=== PATIENT | male | born 1950 | race Caucasian/White ===

== ENCOUNTER 2023-10-24 02:28 | Inpatient (IN) ==
[2023-10-24 02:55] LABS: Hematocrit 30.4 % (38-53); Hemoglobin 9.8 g/dL (13.2-16.3); Mean Corpuscular Hemoglobin 24.3 pg (27-33); Mean Corpuscular Hgb Conc 32.3 g/dL (31-36); Mean Corpuscular Volume 75.2 fL (80-97); Mean Platelet Volume 6.9 fL (7.5-11.2); Platelet Count 237 10^3/uL (150-450); Red Blood Count 4.05 10^6/uL (4.06-5.63); Red Cell Distribution Width 17.7 % (12-17); White Blood Count 14.1 10^3/uL (3.6-10.2)
[2023-10-24 03:03] LABS: Activated Partial Thrombo Time 30.5 seconds (26.0-38.0); INR 1.22 (0.83-1.13)
[2023-10-24 03:27] LABS: ABS Lymphocytes 0.5 10^3/uL (1.0-4.8); ABS Monocytes 0.8 10^3/uL (0.0-1.1); ABS Neutrophils 12.9 10^3/uL (1.5-7.6); Anisocytosis 1+; Eosinophil % 0.1 %; Lymphocyte % 3.4 %
[2023-10-24] MEDS: Lactated Ringers 1000 ml BAG 1,000 ML IV ONE ×2 (03:32→09:35)
[2023-10-24] MEDS: Cefepime 1 GM in Dextrose 1 GM/50 ML BAG IV ONE (03:34)
[2023-10-24] MEDS: Vancomycin 1,000 MG in NS 0.9% 250 ml 250 ML IVPB ONE (03:41)
[2023-10-24 03:42] LABS: Albumin 3.5 g/dL (3.2-5.2); Albumin/Globulin Ratio 1.3 (1-3); C Reactive Protein 143.77 mg/L (<8.01); Calcium 8.3 mg/dL (8.6-10.3); Creatinine, Serum 1.07 mg/dL (0.67-1.17); Globulin 2.6 g/dL (2-4); Potassium 3.1 mmol/L (3.5-5.0); Total Bilirubin 1.4 mg/dL (0.2-1.0); Total Protein 6.1 g/dL (6.4-8.9); eGFR CKD-EPI 72.8 (>60)
[2023-10-24] MEDS: Iodixanol (CONTRAST) 320 MG/ML 100 ML SDV IV ONE (04:21)
[2023-10-24 05:16] LABS: High Sensitivity Troponin 1 Hr 26 pg/mL (<20)
[2023-10-24] MEDS: KCL 20 MEQ/100 ML IVPREMIX 20 MEQ/100 ML BAG IV ONE (05:34)
[2023-10-24] MEDS ORDERED: Dextrose 50% Syringe 50 ml 25 GM/50 ML SYRINGE IV PUSH PRN (05:46)
[2023-10-24 05:49] LABS: Magnesium 1.1 mg/dL (1.9-2.7)
[2023-10-24] MEDS: Magnesium Sulfate 2 gm BAG 2 GM/50 ML BAG IVPB ONE (06:36)
[2023-10-24] MEDS: Lactated Ringers 1000 ml BAG 1,000 ML IV SCH (06:36)
[2023-10-24] MEDS: Acetaminophen IV 1 GM/100ML 1,000 MG/100 ML BAG IV PRN (06:47)
[2023-10-24] MEDS ORDERED: Vancomycin per Pharmacy 1 EA NOTE FOLLOW UP SCH (07:00)
[2023-10-24] MEDS: Cefepime 1 GM in Dextrose 1 GM/50 ML BAG IV SCH (08:13)
[2023-10-24] MEDS: Magnesium Sulfate IV 1GM/100ML 1 GM/100 ML BAG IV ONE ×2 (08:15→22:23)
[2023-10-24 08:46] LABS: ABS Lymphocytes 0.5 10^3/uL (1.0-4.8); ABS Monocytes 0.5 10^3/uL (0.0-1.1); ABS Neutrophils 12.4 10^3/uL (1.5-7.6); Hematocrit 27.2 % (38-53); Hemoglobin 8.9 g/dL (13.2-16.3); Lymphocyte % 3.8 %; Mean Corpuscular Hemoglobin 24.7 pg (27-33); Mean Corpuscular Hgb Conc 32.7 g/dL (31-36); Mean Corpuscular Volume 75.5 fL (80-97); Mean Platelet Volume 7.5 fL (7.5-11.2); Platelet Count 224 10^3/uL (150-450); Red Blood Count 3.61 10^6/uL (4.06-5.63); Red Cell Distribution Width 17.6 % (12-17); White Blood Count 13.5 10^3/uL (3.6-10.2)
[2023-10-24] MEDS ORDERED: Valsartan/HCTZ 320/25(NF) TAB PO SCH (09:00)
[2023-10-24 09:03] LABS: Albumin 3.2 g/dL (3.2-5.2); Albumin/Globulin Ratio 1.3 (1-3); Calcium 7.9 mg/dL (8.6-10.3); Creatinine, Serum 1.18 mg/dL (0.67-1.17); Globulin 2.4 g/dL (2-4); Potassium 3.5 mmol/L (3.5-5.0); Total Bilirubin 1.3 mg/dL (0.2-1.0); Total Protein 5.6 g/dL (6.4-8.9); eGFR CKD-EPI 64.8 (>60)
[2023-10-24 11:39] LABS: Urine Appearance Turbid; Urine Bilirubin Negative (Negative); Urine Blood 3+ (Negative); Urine Color Yellow; Urine Glucose Negative (Negative); Urine Ketones Negative (Negative); Urine Nitrite Negative (Negative); Urine Protein 1+ (>=30 mg/dL) (Negative); Urine Specific Gravity 1.035 (1.002-1.030); Urine Urobilinogen Negative (Negative); Urine pH 5.5 (5.0-8.0)
[2023-10-24 11:52] LABS: Urine Bacteria 1+ /HPF (Absent); Urine Red Blood Cell 3+(>10/hpf) /HPF (0-Trace); Urine Squamous Epithelial Cell Present /HPF (Absent); Urine White Blood Cell 3+(>20/hpf) /HPF (0-Trace)
[2023-10-24] MEDS: Vancomycin Trough Check NOTE FOLLOW UP ONE (12:13)
[2023-10-24] MEDS: Vancomycin 1000 MG in NS 0.9% 250 ML IVPB SCH ×2 (12:36→12:41)
[2023-10-24] MEDS: Heparin 5000 UNITS/ML 1 mL VIAL SUBCUT SCH (22:05)
[2023-10-25 06:31] LABS: ABS Basophils 0.1 10^3/uL (0.0-0.1); ABS Eosinophils 0.1 10^3/uL (0.0-0.5); ABS Lymphocytes 1.5 10^3/uL (1.0-4.8); ABS Monocytes 0.9 10^3/uL (0.0-1.1); ABS Nucleated RBC 0.01 10^3/ul; Eosinophil % 0.5 %; Hematocrit 31.5 % (38-53); Lymphocyte % 9.7 %; Mean Corpuscular Hemoglobin 24.6 pg (27-33); Mean Corpuscular Hgb Conc 31.7 g/dL (31-36); Mean Corpuscular Volume 77.5 fL (80-97); Mean Platelet Volume 7.7 fL (7.5-11.2); Platelet Count 204 10^3/uL (150-450); Red Blood Count 4.07 10^6/uL (4.06-5.63); Red Cell Distribution Width 17.9 % (12-17); White Blood Count 15.5 10^3/uL (3.6-10.2)
[2023-10-25 06:45] LABS: Ferritin 117.4 ng/mL (24-336)
[2023-10-25 07:09] LABS: Anion Gap 15 mmol/L (2-16); Blood Urea Nitrogen 18 mg/dL (6-24); CO2 Carbon Dioxide 23 mmol/L (22-32); Calcium 8.5 mg/dL (8.6-10.3); Chloride 94 mmol/L (101-111); Creatinine, Serum 1.13 mg/dL (0.67-1.17); Glucose 76 mg/dL (70-100); Iron < 20 ug/dL (50-212); Magnesium 2.1 mg/dL (1.9-2.7); Potassium 3.6 mmol/L (3.5-5.0); Sodium 132 mmol/L (135-145); eGFR CKD-EPI 68.2 (>60)
[2023-10-25] MEDS: Cefepime 1 GM in Dextrose 1 GM/50 ML BAG IV SCH (09:33)
[2023-10-25] MEDS: Digoxin IV 0.5 MG/2 ML AMP (0.25 MG/ML) IV SLOW PU ONE ×2 (10:09→10:54)
[2023-10-25 10:18] LABS: Creatinine, Serum 1.08 mg/dL (0.67-1.17); Vancomycin Trough 10.7 mcg/mL
[2023-10-25] MEDS: Vancomycin Trough Check NOTE FOLLOW UP ONE (11:26)
[2023-10-25] MEDS ORDERED: Digoxin IV 0.5 MG/2 ML AMP (0.25 MG/ML) IV SLOW PU SCH (18:00)
[2023-10-26 06:05] LABS: ABS Basophils 0.1 10^3/uL (0.0-0.1); ABS Eosinophils 0.3 10^3/uL (0.0-0.5); ABS Lymphocytes 1.3 10^3/uL (1.0-4.8); ABS Monocytes 1.2 10^3/uL (0.0-1.1); ABS Neutrophils 11.3 10^3/uL (1.5-7.6); Eosinophil % 1.9 %; Hematocrit 31.3 % (38-53); Lymphocyte % 9.3 %; Mean Corpuscular Hemoglobin 24.6 pg (27-33); Mean Corpuscular Hgb Conc 31.9 g/dL (31-36); Mean Corpuscular Volume 77.3 fL (80-97); Mean Platelet Volume 7.4 fL (7.5-11.2); Platelet Count 220 10^3/uL (150-450); Red Blood Count 4.05 10^6/uL (4.06-5.63); Red Cell Distribution Width 17.8 % (12-17); White Blood Count 14.1 10^3/uL (3.6-10.2)
[2023-10-26 06:39] LABS: Calcium 8.4 mg/dL (8.6-10.3); Creatinine, Serum 1.11 mg/dL (0.67-1.17); Potassium 3.9 mmol/L (3.5-5.0); eGFR CKD-EPI 69.7 (>60)
[2023-10-26 09:07] LABS: C Reactive Protein 274.95 mg/L (<8.01)
[2023-10-26] MEDS: Iodixanol (CONTRAST) 320 MG/ML 100 ML SDV IV SCH (14:59)
[2023-10-26] MEDS: cefTRIAXone 1 gm/50 mL D5W 1 GM/50 ML BAG IV SCH (17:09)
[2023-10-27] MEDS: Digoxin IV 0.5 MG/2 ML AMP (0.25 MG/ML) IV SLOW PU ONE (11:38)
[2023-10-28 08:28] LABS: ABS Basophils 0.1 10^3/uL (0.0-0.1); ABS Eosinophils 0.3 10^3/uL (0.0-0.5); ABS Lymphocytes 1.1 10^3/uL (1.0-4.8); ABS Monocytes 1.1 10^3/uL (0.0-1.1); ABS Neutrophils 7.8 10^3/uL (1.5-7.6); Eosinophil % 3.1 %; Hematocrit 28.2 % (38-53); Hemoglobin 9.3 g/dL (13.2-16.3); Lymphocyte % 10.4 %; Mean Corpuscular Hgb Conc 32.9 g/dL (31-36); Platelet Count 320 10^3/uL (150-450); Red Cell Distribution Width 17.7 % (12-17); White Blood Count 10.3 10^3/uL (3.6-10.2)
[2023-10-28 09:05] LABS: Calcium 8.7 mg/dL (8.6-10.3); Creatinine, Serum 0.74 mg/dL (0.67-1.17); Potassium 3.7 mmol/L (3.5-5.0); eGFR CKD-EPI 95.1 (>60)
[2023-10-28] MEDS: Furosemide 20 mg/2 ml IV VIAL IV SLOW PU ONE (15:14)
[2023-10-29] MEDS ORDERED: Vancomycin Trough Check NOTE FOLLOW UP ONE (09:30)
[2023-10-29 11:05] LABS: Creatinine, Serum 0.84 mg/dL (0.67-1.17); eGFR CKD-EPI 91.5 (>60)
[2023-10-30] MEDS ORDERED: fentaNYL 100 mcg/2 ml 50 MCG/ML VIAL ONE (08:03)
[2023-10-30] MEDS ORDERED: Flumazenil 0.5 mg/5 ml 0.1 MG/ML 5 ml VIAL ONE (08:03)
[2023-10-30] MEDS ORDERED: Naloxone 0.4 mg VIAL 0.4 mg/ml 1 ml VIAL ONE (08:03)
[2023-10-30] MEDS ORDERED: Midazolam 5 mg/5 ml VIAL 1 mg/ml 5 ml VIAL (5 mg) ONE (08:04)
[2023-10-30 13:45] LABS: ABS Basophils 0.1 10^3/uL (0.0-0.1); ABS Eosinophils 0.3 10^3/uL (0.0-0.5); ABS Lymphocytes 1.2 10^3/uL (1.0-4.8); ABS Monocytes 0.5 10^3/uL (0.0-1.1); ABS Neutrophils 9.7 10^3/uL (1.5-7.6); Eosinophil % 2.6 %; Hematocrit 31.4 % (38-53); Hemoglobin 10.2 g/dL (13.2-16.3); Lymphocyte % 10.2 %; Mean Corpuscular Hemoglobin 24.8 pg (27-33); Mean Corpuscular Hgb Conc 32.3 g/dL (31-36); Mean Corpuscular Volume 76.7 fL (80-97); Mean Platelet Volume 7.2 fL (7.5-11.2); Platelet Count 569 10^3/uL (150-450); Red Cell Distribution Width 17.6 % (12-17); White Blood Count 11.8 10^3/uL (3.6-10.2)
[2023-10-30 14:01] LABS: Calcium 9.1 mg/dL (8.6-10.3); Creatinine, Serum 0.94 mg/dL (0.67-1.17); Potassium 4.3 mmol/L (3.5-5.0); eGFR CKD-EPI 85.1 (>60)
[2023-10-30] MEDS: Benzocaine/Menthol LOZ PO PRN (16:48)
[2023-10-30] MEDS: guaiFENesin 100 mg/5 ml LIQ unit dose cup PO PRN (16:59)
[2023-11-04 14:56] LABS: Rapid COVID-19 Molecular Undetected (Undetected)
[2023-11-05 09:54] VITALS: BP 118/59
== END 2023-11-05 13:03 | DRG 871 ==
LOC: EDHOLD 02:28 → ED 02:28 → MED 08:41 → SUATTDRO 10-26 09:48 → MEDTELE 10-29 00:33
PROVIDERS: ADMIT Hospitalist; ATTEND Internal Medicine